=== PATIENT | female | born 1950 ===

== ENCOUNTER 2018-12-30 09:18 | Outpatient (CLI) | payer OTHER | END 2018-12-30 09:26 | disposition home or self-care (01) | LOC: NUCLEAR 09:18 | DX: I35.0 Nonrheumatic aortic (valve) stenosis (principal) ==

== ENCOUNTER → 2019-05-17 11:05 | Outpatient (CLI) | payer OTHER | END | disposition home or self-care (01) | LOC: LAB 11:05 | DX: M85.88 Other specified disorders of bone density and structure, other site (principal); E21.2 Other hyperparathyroidism; E88.89 Other specified metabolic disorders; M81.8 Other osteoporosis without current pathological fracture; E55.9 Vitamin D deficiency, unspecified; E56.1 Deficiency of vitamin K; D64.89 Other specified anemias; M06.4 Inflammatory polyarthropathy; E13.69 Other specified diabetes mellitus with other specified complication ==

== ENCOUNTER 2019-06-27 08:51 | Outpatient (CLI) | payer OTHER | END 2019-06-27 09:13 | disposition home or self-care (01) | LOC: NUCLEAR 08:51 | DX: M25.562 Pain in left knee (principal); Z96.652 Presence of left artificial knee joint | CPT/HCPCS: 78802; A9556 ==

== ENCOUNTER 2019-07-20 09:10 | Outpatient (CLI) | payer OTHER | END 2019-07-20 09:17 | disposition home or self-care (01) | LOC: NUCLEAR 09:10 | DX: M25.562 Pain in left knee (principal); Z96.652 Presence of left artificial knee joint | CPT/HCPCS: 78315; A9503 ==

== ENCOUNTER 2019-11-24 09:27 | Outpatient (CLI) | payer OTHER | END 2019-11-24 09:37 | disposition home or self-care (01) | LOC: NUCLEAR 09:27 | PROVIDERS: ATTEND Internal Medicine | DX: I25.10 Atherosclerotic heart disease of native coronary artery without angina pectoris (principal); Z95.1 Presence of aortocoronary bypass graft; I35.0 Nonrheumatic aortic (valve) stenosis; I10 Essential (primary) hypertension; E78.2 Mixed hyperlipidemia; G47.30 Sleep apnea, unspecified; I25.5 Ischemic cardiomyopathy; I50.42 Chronic combined systolic (congestive) and diastolic (congestive) heart failure ==

== ENCOUNTER 2020-01-23 08:21 | Outpatient (CLI) | payer OTHER | END 2020-01-23 08:26 | disposition home or self-care (01) | LOC: RAD 08:21 | PROVIDERS: ATTEND Orthopaedic Surgery | DX: M25.562 Pain in left knee (principal); R93.6 Abnormal findings on diagnostic imaging of limbs; T84.093A Other mechanical complication of internal left knee prosthesis, initial encounter; Z96.652 Presence of left artificial knee joint; M81.0 Age-related osteoporosis without current pathological fracture ==

== ENCOUNTER 2021-04-22 08:49 | Outpatient (CLI) | payer OTHER | END 2021-04-22 15:00 | disposition home or self-care (01) | LOC: LAB 08:49 | PROVIDERS: ATTEND Orthopaedic Surgery | DX: D64.9 Anemia, unspecified (principal); E88.9 Metabolic disorder, unspecified; D68.8 Other specified coagulation defects; N39.0 Urinary tract infection, site not specified; E11.9 Type 2 diabetes mellitus without complications; A49.02 Methicillin resistant Staphylococcus aureus infection, unspecified site ==

== ENCOUNTER 2021-04-29 09:29 | Outpatient (CLI) | payer OTHER ==
[2021-05-01] MEDS ORDERED: CARVEDILOL6.25 MG (13:36)
[2021-05-01] MEDS ORDERED: AVAPRO300 MG PO (13:36)
[2021-05-01] MEDS ORDERED: SYNTHROID50 MCG PO (13:36)
== END 2021-04-29 09:39 | disposition home or self-care (01) ==
LOC: LAB 09:29
PROVIDERS: ATTEND Orthopaedic Surgery
DX: Z03.818 Encounter for observation for suspected exposure to other biological agents ruled out (principal); N39.0 Urinary tract infection, site not specified

== ENCOUNTER 2021-05-03 05:50 | Day surgery (SDC) | payer OTHER ==
[~2021-05-03 05:50] MED LIST: AVAPRO300 MG PO; CARVEDILOL6.25 MG; SYNTHROID50 MCG PO
== END 2021-05-03 11:45 | disposition home or self-care (01) ==
LOC: CIR.AMB 05:50
PROVIDERS: ATTEND Orthopaedic Surgery
DX: M65.842 Other synovitis and tenosynovitis, left hand (principal); M65.312 Trigger thumb, left thumb

== ENCOUNTER 2021-06-05 08:15 | Outpatient (CLI) | payer OTHER | END 2021-06-05 08:27 | disposition home or self-care (01) | LOC: TOM 08:15 | PROVIDERS: ATTEND Orthopaedic Surgery | DX: T84.093D Other mechanical complication of internal left knee prosthesis, subsequent encounter (principal) ==

== ENCOUNTER 2022-04-16 17:38 | Outpatient (CLI) | payer OTHER | END 2022-04-16 17:40 | disposition home or self-care (01) | LOC: RAD 17:38 → LAB 17:38 | PROVIDERS: ATTEND Orthopaedic Surgery | DX: M25.572 Pain in left ankle and joints of left foot (principal); M25.571 Pain in right ankle and joints of right foot ==

== ENCOUNTER 2022-05-15 09:03 | Outpatient (CLI) | payer OTHER | END 2022-05-15 09:08 | disposition home or self-care (01) | LOC: RAD 09:03 | PROVIDERS: ATTEND Orthopaedic Surgery | DX: M25.571 Pain in right ankle and joints of right foot (principal); M25.572 Pain in left ankle and joints of left foot; M79.671 Pain in right foot ==

== ENCOUNTER → 2022-05-26 07:59 | Outpatient (CLI) | payer OTHER | END | disposition home or self-care (01) | LOC: LAB 07:59 | PROVIDERS: ATTEND Orthopaedic Surgery | DX: D64.89 Other specified anemias (principal); E88.89 Other specified metabolic disorders; D68.8 Other specified coagulation defects; N39.0 Urinary tract infection, site not specified; A49.02 Methicillin resistant Staphylococcus aureus infection, unspecified site; E11.9 Type 2 diabetes mellitus without complications; I49.9 Cardiac arrhythmia, unspecified; I10 Essential (primary) hypertension; Z76.89 Persons encountering health services in other specified circumstances ==

== ENCOUNTER 2022-05-29 11:14 | Outpatient (CLI) | payer OTHER | END 2022-05-29 11:18 | disposition home or self-care (01) | LOC: RAD 11:14 | PROVIDERS: ATTEND Orthopaedic Surgery | DX: M25.571 Pain in right ankle and joints of right foot (principal); M25.572 Pain in left ankle and joints of left foot; M79.671 Pain in right foot ==

== ENCOUNTER 2022-05-31 09:04 | Outpatient (CLI) | payer OTHER | END 2022-05-31 09:05 | disposition home or self-care (01) | LOC: LAB 09:04 | PROVIDERS: ATTEND Orthopaedic Surgery | DX: D68.8 Other specified coagulation defects (principal) ==

== ENCOUNTER 2022-06-03 05:45 | Day surgery (SDC) | payer OTHER | END 2022-06-03 20:00 | disposition home or self-care (01) | LOC: CIR.AMB 05:45 → ADM 11:15 → CIR.AMB 11:15 | PROVIDERS: ATTEND Orthopaedic Surgery | DX: T84.84XA Pain due to internal orthopedic prosthetic devices, implants and grafts, initial encounter (principal); S93.432A Sprain of tibiofibular ligament of left ankle, initial encounter; M25.572 Pain in left ankle and joints of left foot; Z20.822 Contact with and (suspected) exposure to COVID-19; I10 Essential (primary) hypertension; E03.9 Hypothyroidism, unspecified | CPT/HCPCS: 27829; 20680; L8690 ==

== ENCOUNTER 2022-11-04 09:12 | Outpatient (CLI) | payer OTHER | END 2022-11-04 09:14 | disposition home or self-care (01) | LOC: LAB 09:12 | PROVIDERS: ATTEND Orthopaedic Surgery | DX: M85.9 Disorder of bone density and structure, unspecified (principal); E83.42 Hypomagnesemia; E56.1 Deficiency of vitamin K; E88.89 Other specified metabolic disorders; M81.8 Other osteoporosis without current pathological fracture ==

== ENCOUNTER 2022-11-04 10:09 | Outpatient (CLI) | payer OTHER | END 2022-11-04 10:14 | disposition home or self-care (01) | LOC: RAD 10:09 | PROVIDERS: ATTEND Orthopaedic Surgery | DX: M25.551 Pain in right hip (principal); M25.552 Pain in left hip ==